=== PATIENT | female | born 1970 | race Caucasian/White ===

== ENCOUNTER 2020-12-01 13:15 | Emergency (ER) | payer OTHER, SELFPAY ==
--- NOTE | ~2020-12-01 | XR_ITS ---
XR chest 1V portable DATE: 12/01/2020 15:49 INDICATION: Cough, productive green mucus. Shortness of breath TECHNIQUE: Portable upright AP chest on 12/01/2020 at 1542 hours COMPARISON: 12/07/2019 PA chest FINDINGS: There is middle lobe infiltrate and/or atelectasis. Marco B-lines are noted, best demonstrated in the left mid to lower lung. Normal heart size. No pleural effusion or pulmonary vascular congestion or pneumothorax. Status post cholecystectomy IMPRESSION: Middle lobe infiltrate and/atelectasis Marco B-lines suggest mild interstitial pneumonitis or interstitial edema of the lungs Reviewed, dictated and finalized at location B. OR ACCOUNT MANAGER IMPRESSION: Middle lobe infiltrate and/atelectasis Marco B-lines suggest mild interstitial pneumonitis or interstitial edema of t he lungs
--- NOTE | ~2020-12-01 | CT_ITS ---
EXAMINATION: CT chest wo con EXAM DATE: 12/01/2020 16:55 INDICATION: Ongoing cough, leukocytosis, chest infiltrates. TECHNIQUE: Spiral CT of the chest without contrast. Axial, coronal and sagittal images were reviewe d. Coronal maximum intensity pixel images of chest reviewed. The dose-length product (DLP) for this examination was 138.05 mGy-cm. The exposure was tailored according to patient size (auto mA exposur e control), and iterative reconstruction (ASIR) was used as additional dose reduction technique. Comp arison is made to prior examination from 12/01/2020. FINDINGS: Scattered regions of subsegmental atelectasis, largest in the right middle lobe and left l ower lobe. Scattered punctate regions of tree-in-bud opacities in the lower lung zones generally jackson cating endobronchial spread of infection, could be chronic. Differential diagnosis includes TB/MARGARITA a nd hypersensitivity pneumonitis. There are no pleural or pericardial effusions. Tracheobronchial tree is patent. There is no media stinal, hilar or axillary lymphadenopathy. There is no pneumothorax. Heart normal in size. Ther e is mild coronary arterial calcification, arterial sclerosis. Upper abdomen is unremarkable. Ther e is thoracic spondylosis without osteoblastic or osteolytic lesions identified. There are cholecys tectomy clips. IMPRESSION: 1. Scattered regions of tree-in-bud punctate nodules, most likely chronic infectious process or hype rsensitivity pneumonitis. 2. Basilar subsegmental atelectasis. Reviewed, dictated and finalized at location A. ICAL EDUCATION AIDE IMPRESSION: 1. Scattered regions of tree-in-bud punctate nodules, most likely chronic infe ctious process or hypersensitivity pneumonitis. 2. Basilar subsegmental atelectasis.
[2020-12-01 13:29] VITALS: BP 147/98; PULSE 95; RESP 16; TEMP 36.1; O2SAT 95
--- NOTE | 2020-12-01 15:37 | ED.URI ---
HPI - URI/Sore Throat General Chief Complaint: Upper Respiratory Infection Stated Complaint: cough since Nov 07 Time Seen by Provider: 12/01/20 15:02 Source: patient Mode of arrival: ambulatory Limitations: no limitations History of Present Illness HPI Narrative: This is a 50 year old female that presents to the ER for cough present over the last 3 weeks. Reports she has been on antibiotics twice for this without relief. Associated with rhinorrhea and congestion. Denies fever, or shortness of breath. Related Data Allergies Allergy/AdvReac Type Severity Reaction Status Date / Time hydromorphone [From Dilaudid] AdvReac Severe Seizure Verified 12/01/20 13:32 codeine AdvReac Intermediate Headache Verified 12/01/20 13:32 Review of Systems Review of Systems: Narrative: CONSTITUTIONAL: Denies fever ENT: Reports rhinorrhea, congestion RESPIRATORY: Reports cough. Denies dyspnea. All systems reviewed & are unremarkable except as noted in HPI and below PMFSH Past Medical History Medical History (Updated 12/01/20 @ 17:24 by Carmen Adams PA-C) History of coronary artery disease History of gastroesophageal reflux (GERD) Social History Social History (Updated 12/01/20 @ 15:44 by Carmen Adams PA-C) Smoking status: Former smoker Gender identity (if verbalized by the patient): Female Exam Narrative: Exam Narrative: GENERAL: Well-appearing, well-nourished, and in no acute distress. HEAD: Normocephalic, atraumatic. EYES: EOMI. ENT: Nares clear, no rhinorrhea or epistaxis. Mucous membranes moist. Oropharynx without tonsillar hypertrophy exudate or other lesions. Bilateral TMs pearly mccord non-bulging NECK: Supple. No adenopathy or masses. CHEST: Clear to auscultation. No respiratory distress. No wheezes rales or rhonchi HEART: Regular rate and rhythm. No murmur heard. Normal peripheral pulses. EXTREMITIES: Normal range of motion. No edema. SKIN: Warm, dry, no rash. NEURO: No focal deficits. Alert and oriented x3. PSYCH: Normal mood and affect Course Vital Signs Vital signs: Vital Signs Temperature 96.9 F L 12/01/20 13:29 Pulse Rate 95 12/01/20 13:29 Respiratory Rate 16 12/01/20 13:29 Blood Pressure 147/98 H 12/01/20 13:29 Pulse Oximetry 95 12/01/20 13:29 Temperature 96.9 F L 12/01/20 13:29 Pulse Rate 95 12/01/20 13:29 Respiratory Rate 16 12/01/20 13:29 Blood Pressure 147/98 H 12/01/20 13:29 Pulse Oximetry 95 12/01/20 13:29 MDM - URI/Sore Throat MDM Narrative Medical decision making narrative: Patient presents to the emergency department for cough over the last 3 weeks. She is afebrile and nontoxic-appearing. Oxygen saturation is normal on room air. CBC with leukocytosis to 14.1. Metabolic panel without concerning findings. Chest x-ray shows middle lobe infiltrate versus atelectasis. CT scan of the chest was obtained which showed scattered regions of tree-in-bud nodules which most likely represents chronic infectious process or hypersensitivity pneumonitis. SARS-CoV-[address] Grubbs, pulmonology about patient work-up. Patient will be treated with Levaquin for community-acquired pneumonia. Would recommend her to follow-up with her PCP for another CT scan of the chest in 6 weeks. Patient is stable and felt appropriate for the outpatient evaluation. She was given warnings to return to the ER Lab Data Attestation: I reviewed the patient's lab results. Result diagrams: 12/01/20 15:47 12/01/20 15:48 Labs: Lab Results 12/01/20 12/01/20 12/01/20 Range/Units 15:47 15:48 15:49 WBC 14.1 H (4.5-10.0) K/mm3 RBC 5.40 (4.2-5.4) M/mm3 Hgb 13.4 (12.0-15.0) g/dL Hct 42.2 (37.0-47.0) % MCV 78.1 L (80-100) fl MCH 24.8 L (26-34) pg MCHC 31.8 L (32-36) g/dl RDW 18.0 H (11.5-14.5) % Plt Count 404 H (150-375) k/mm3 MPV 10.2 (7.4-10.4) fl Immature Gran % (Auto) 0.4 (0-0.5) % Neut % (Auto)
--- NOTE | 2020-12-01 15:53 | PC.NURSE ---
Pt was unable to complete Flu nasal swab. Informed VERNON Adams of this.
[2020-12-01 15:59] LABS: Basophils Absolute Auto 0.1 K/mm3 (0.0-0.1); Basophils Percent Auto 0.5 % (0.2-1.2); Eosinophils Absolute Auto 0.3 K/mm3 (0-0.3); Eosinophils Percent Auto 2.4 % (0-4.4); Hematocrit 42.2 % (37.0-47.0); Hemoglobin 13.4 g/dL (12.0-15.0); Immature Granulocyte Absolute 0.06 K/mm3 (0.00-0.031); Immature Granulocyte Percent A 0.4 % (0-0.5); Lymphocytes Absolute Auto 4.95 K/mm3 (0.9-3.2); Lymphocytes Percent Auto 35.2 % (18.3-44.2); Mean Corpuscular HGB Conc 31.8 g/dl (32-36); Mean Corpuscular Hemoglobin 24.8 pg (26-34); Mean Corpuscular Volume 78.1 fl (80-100); Mean Platelet Volume 10.2 fl (7.4-10.4); Monocytes Absolute Auto 1.1 K/mm3 (0.1-0.6); Neutrophils Absolute Auto 7.5 K/mm3 (1.3-6.7); Neutrophils Percent Auto 53.5 % (45.5-73.1); Platelet Count Result 404 k/mm3 (150-375); White Blood Count 14.1 K/mm3 (4.5-10.0)
[2020-12-01 16:14] LABS: Anion Gap 8 mmol/L (8-16); Blood Urea Nitrogen 7 mg/dL (7-17); Calcium 9.2 mg/dL (8.4-10.2); Carbon Dioxide 28 mmol/L (22-30); Chloride 103 mmol/L (98-107); Estimated CRCL calculation 82 ml/min; Estimated Glomerular Filt Rate > 60; Glucose 96 mg/dL (65-105); Potassium 3.6 mmol/L (3.4-5.0); Sodium 139 mmol/L (137-145)
[2020-12-01 23:29] LABS: SARS-CoV-2 RNA PCR Negative
== END 2020-12-01 17:48 | disposition home or self-care (01) ==
PROVIDERS: Physician Assistant; Emergency Provider Emergency Medicine
DX: J18.9 Pneumonia, unspecified organism (principal); Z20.822 Contact with and (suspected) exposure to COVID-19; I25.10 Atherosclerotic heart disease of native coronary artery without angina pectoris; K21.9 Gastro-esophageal reflux disease without esophagitis; Z87.891 Personal history of nicotine dependence
CPT/HCPCS: 36415; 71045; 71250; 80048; 85025; 99283; C9803; U0003

== ENCOUNTER 2021-07-19 10:47 | Outpatient (CLI) | payer OTHER, SELFPAY ==
--- NOTE | ~2021-07-19 | CT_ITS ---
EXAMINATION: CT abdomen pelvis wo con DATE: 07/19/2021 11:09 INDICATION: Hematuria, unspecified. TECHNIQUE: Computed tomography (CT) of the abdomen and pelvis was performed without intravenous contr ast. Automated exposure control and iterative reconstruction technique were employed. The dose-length product was 375.54 mGy-cm. COMPARISON: Chest CT 12/01/2020 FINDINGS: The visualized portions of the lung bases demonstrate mild atelectasis. No pleural effusion . The heart size is normal. No pericardial effusion. The liver and spleen are normal. There are harrison es of cholecystectomy. The pancreas, adrenal glands, and kidneys are normal. There is no urolithiasis . There are changes of appendectomy. There are no dilated loops of bowel. There are no pathologically enlarged lymph nodes. There is no free intraperitoneal fluid. There are chronic bilateral L5 pars de fects. There is 3 mm anterolisthesis of L5 on S1. There is mild thoracic and lumbar spondylosis. IMPRESSION: 1. No etiology for hematuria. Reviewed, dictated and finalized at location A.
== END 2021-07-19 10:48 | disposition home or self-care (01) ==
PROVIDERS: PCP Family Medicine; Visit Provider Family Medicine
DX: R31.9 Hematuria, unspecified (principal)
CPT/HCPCS: 74176

== ENCOUNTER 2021-08-17 14:05 | Outpatient (CLI) | payer OTHER, SELFPAY ==
--- NOTE | 2021-08-17 14:07 | ECHO_ITS ---
Patient Info Name: Ludmila Cool Age: 51 years : 1970 Gender: Female Ht: 60 in Wt: 144 lbs BSA: 1.68 m2 HR: 58 bpm BP: 136 / 93 mmHg Technical Quality: Fair Exam Date: 08/17/2021 2:13 PM Exam Location: [facility] Patient Status: Outpatient Admit Date: 08/17/2021 Staff Ordering Physician: Genesis Irby MD Elevator Repair Mechanic: Anais Jones RDCS Attending Provider: Genesis Irby MD Referring Physician: Mahamed LEYVA; Exam Type: CA echo doppler color flow Study Info Indications R01.1 - Cardiac murmur, unspecified Complete two-dimensional, color flow and Doppler transthoracic echocardiogram is performed. Summary 1. Complete two-dimensional, color flow and Doppler transthoracic echocardiogram is performed. 2. Left ventricular chamber dimension is normal. 3. Left ventricular systolic function is normal, estimated at 55-60%. 4. The left ventricular diastolic function is normal. 5. E/e' 9 is minimally elevated. 6. Global longitudinal strain is abnormal at -15.4%. 7. There is trace mitral valve regurgitation. 8. No pulmonary hypertension, estimated pulmonary arterial systolic pressure is 28 mmHg. Left Ventricle E/e' 9 is minimally elevated. Global longitudinal strain is abnormal at -15.4%. Left ventricular chamber dimension is normal. Left ventricular systolic function is normal, estimated at 55-60%. The left ventricular diastolic function is normal. Right Ventricle Right ventricular chamber dimension is normal. Right ventricular systolic function is normal. Left Atria Left atrial chamber dimension is normal. Right Atria Right atrial chamber dimension is normal. Aortic Valve The aortic valve is trileaflet. There is no aortic valve stenosis. There is no aortic valve regurgitation. Pulmonic Valve There is no pulmonic regurgitation. Mitral Valve There is no mitral valve stenosis. There is trace mitral valve regurgitation. Tricuspid Valve There is no tricuspid valve regurgitation. No pulmonary hypertension, estimated pulmonary arterial systolic pressure is 28 mmHg. Pericardium/Pleural There is no pericardial effusion. Inferior Vena Cava Normal inferior vena cava with >50% collapse upon inspiration consistent with normal right atrial pressure, 5 mmHg. Aorta The aortic root size at the sinus of Valsalva is normal. Left Ventricular Outflow Tract Name Value Normal LVOT 2D LVOT Diameter 1.9 cm LVOT Doppler LVOT Peak Gradient 3 mmHg LVOT Mean Gradient 2 mmHg LVOT VTI 19 cm LVOT VTI/AV VTI Ratio 0.7 LVOT Stroke Volume 53 ml LVOT CO 4.0 l/min LVOT CI 2.4 l/min/m2 Pulmonic Valve Name Value Normal RVOT Doppler
== END 2021-08-17 14:06 | disposition home or self-care (01) ==
PROVIDERS: PCP Family Medicine; Visit Provider Family Medicine
DX: R01.1 Cardiac murmur, unspecified (principal)
CPT/HCPCS: 93306

== ENCOUNTER 2021-10-17 15:50 | Outpatient (CLI) | payer OTHER, SELFPAY ==
--- NOTE | ~2021-10-17 | CT_ITS ---
EXAMINATION: CT abdomen pelvis w con DATE: 10/17/2021 16:21 INDICATION: Gross hematuria TECHNIQUE: Computed tomography (CT) of the abdomen and pelvis was performed with 100 cc Omnipaque 350 intravenous contrast. The dose-length product was 400.31 mGy-cm. Automated exposure control and iter ative reconstruction technique were employed. COMPARISON: CT dated 07/19/2021. FINDINGS: There is bibasilar dependent atelectasis. Heart size normal. No significant pleural or kimberli cardial effusion. There are 2 hypodensities of the liver, largest in the right hepatic lobe measuring 1.3 cm, image 37. Status post cholecystectomy. The spleen, pancreas, adrenal glands and kidneys are unremarkable. No hydronephrosis. No significant lymphadenopathy. No significant vascular abnormality. No abnormal pelvic masses or fluid collections. No free air or free fluid. No acute osseous abnormal ity. Nonobstructive bowel gas pattern. Colonic diverticulosis without evidence for diverticulitis. IMPRESSION: 1. Subtle hypodensities of the liver, largest measuring 1.3 cm. Statistically these are most likely b enign, although further evaluation with MRI should be considered. 2: No findings to account for patient's hematuria. Reviewed, dictated and finalized at location A. SURGEON IMPRESSION: 1. Subtle hypodensities of the liver, largest measuring 1.3 cm. Statistically t hese are most likely benign, although further evaluation with MRI should be con sidered. 2: No findings to account for patient's hematuria.
== END 2021-10-17 15:51 | disposition home or self-care (01) ==
LOC: ANHIMG 15:57
PROVIDERS: PCP Family Medicine; Visit Provider Urology
DX: R31.0 Gross hematuria (principal); R93.2 Abnormal findings on diagnostic imaging of liver and biliary tract
CPT/HCPCS: 74177; Q9967

== ENCOUNTER 2021-10-25 13:04 | Outpatient (CLI) | payer OTHER, SELFPAY ==
--- NOTE | 2021-10-25 15:33 | ECG_ITS ---
Measurements Intervals [place] Rate: 62 P: 25 [place]: 153 QRS: 44 QRSD: 86 T: 35 QT: 377 QTc: 385 Interpretive Statements SINUS RHYTHM WITH MARKED SINUS ARRHYTHMIA VENTRICULAR PREMATURE COMPLEX DELAYED PRECORDIAL R/S TRANSITION BASELINE ARTIFACT- I, III, AVL, AVF BORDERLINE ECG Electronically Signed On 10-25-2021 16:05:19 COMPOSITE WORKER by Clinton Luther D.O.
== END 2021-10-25 13:05 | disposition home or self-care (01) ==
PROVIDERS: PCP Family Medicine; Visit Provider Urology
DX: Z01.810 Encounter for preprocedural cardiovascular examination (principal); E78.5 Hyperlipidemia, unspecified; F17.210 Nicotine dependence, cigarettes, uncomplicated
CPT/HCPCS: 93005

== ENCOUNTER 2021-10-29 02:01 | Day surgery (SDC) | payer OTHER, SELFPAY ==
[2021-10-24 15:09] VITALS: BMI 28.7
--- NOTE | 2021-10-24 15:23 | PC.NURSE ---
Report to the Outpatient Waiting Room, entrance under the green pavilion located off [facility], at time 6:00 on date 10/29/21. OR Time: 8:00. - You and your visitor will be asked a series of questions to screen for COVID 19 for your protection. - A mask is required within the hospital. - Only one visitor is allowed at this time. Patient visitors will be guided where to wait when not with patient. Preoperative COVID Testing Requirements: No COVID Test needed if: (proof is required; if not received patient will have Rapid Test prior to entry) - Patient has received COVID Vaccine at least 14 days prior to procedure date or - Patient has positive COVID test result within last 90 days of surgery date. COVID Test needed if above criteria is not met If not COVID vaccinated a COVID test must be conducted within 72 hours of surgery and patient is asked to isolate self from time of testing until procedure. You will go to the [facility] for your COVID testing. The [employer] [facility] is located at the corner of [address] [facility]. You will only be called if COVID results are positive and your surgeon may reschedule your elective surgery date. Patients may have clear liquids (water, carbonated beverages, clear teas, apple juice) until 3 hours prior to surgery with a maximum of 20 ounces. - No food from midnight until time of surgery - Infants may have breast milk until 4 hours before surgery, formula 6 hours prior to surgery. - Children will be allowed to drink immediately following surgery. If applicable, please bring a bottle or sippy cup to assist with drinking. Juice, water, soda, and popsicles are readily available. For infants on formula, please bring formula the day of surgery. Pacifiers are allowed. Take the following medications with a SIP of water the morning of surgery: NONE Medications to discontinue per physician: ASPIRIN AND XARELTO Date to take last dose: PER DR. TADEO Please no make-up, nail honduran, hairspray, perfume, deodorant, or body powder the day of surgery. No jewelry (including any body piercings) or valuables the day of surgery, leave them at home. Please take a shower or bath the night before, or the morning of, surgery with an antibacterial soap. Wear comfortable, loose fitting clothing. Children are encouraged to wear pajamas. - Jewelry must be removed prior to entering the operating room. Rings and piercings that are not removed may be cut off. - The hospital will not accept responsibility for valuables. - Please leave all valuables, including medications, at home the day of surgery. If you are going home after surgery, a licensed starting gate driver must drive you home. - NO public transportation without another adult. - We recommend that an adult stay with you for 24 hours following discharge. - We also recommend that you do not drive, make important decision, drink alcoholic beverages, or take any drugs that were not prescribed by your health care provider for at least 24 hours after your discharge time. For Pediatric surgeries, we recommend two adults accompany the child home (only one inside the building at this time). Follow any additional instructions given to you from your surgeon. Telephone instructions given to EDGARDO RUSH and asked if any additional questions and then verbalized understanding. Patient advised to call surgeon office or pre surgery nurse liaison [phone] if any additional questions.
--- NOTE | 2021-10-26 08:51 | PM.IMHP ---
H&P: HPI History of Present Illness Date/Time: 10/26/21 08:51 This is a 51-year-old woman the bladder tumor noted on cystoscopy Chief Complaint: Bladder tumor Review of Systems Review of Systems: All systems reviewed & are unremarkable except as noted in HPI and below PMFSH Past Medical History Medical History Endometriosis History of coronary artery disease History of gastroesophageal reflux (GERD) PAD (peripheral artery disease) PVD (peripheral vascular disease) Surgical History Surgical History History of femoropopliteal bypass S/P cholecystectomy S/P YANI (total abdominal hysterectomy) Family History Family History Father , age 70 Colon cancer at age 7 Mother Congestive heart failure Sibling Lung cancer Social History Social History Social History: Single Smoking packs per day: 1.5 Smoking cigarettes per day: 30.0 Years smoked: 33 Smoking pack-years: 49.50 Smoking status: Former smoker Tobacco type: cigarettes Second hand tobacco smoke exposure: No Smoking end date: 11/24/18 Alcohol intake: current Alcohol use details: 2-4/YEAR Substance use: never Substance use type: does not use Gender identity (if verbalized by the patient): Female Sexual Orientation (if Verbalized by the Patient): Straight or Heterosexual Spiritual care concerns: No Meds Home Medications and Allergies Home Medications Medication Instructions Recorded Confirmed Type aspirin 81 mg tablet,delayed 81 mg PO DAILY 12/15/20 10/24/21 History release atorvastatin 40 mg tablet 40 mg PO DAILY 12/15/20 10/24/21 History omeprazole 20 mg capsule,delayed 20 mg PO DAILY 12/15/20 10/24/21 History release rivaroxaban 2.5 mg tablet 2.5 mg PO BID 07/19/21 10/24/21 History Allergies Allergy/AdvReac Type Severity Reaction Status Date / Time hydromorphone [From Dilaudid] AdvReac Severe Seizure Verified 10/24/21 15:07 codeine AdvReac Intermediate Headache Verified 10/24/21 15:07 Exam Narrative: No acute distress Normal breathing Alert and orient x3 Assessment and Plan Assessment and plan (1) Neoplasm, bladder: Code(s): D49.4 - Neoplasm of unspecified behavior of bladder Status: Acute Assessment and Plan: Transurethral resection of bladder tumor
[2021-10-29] VITALS (8 sets, daily range): BP systolic 115–151; BP diastolic 59–86; PULSE 62–82; RESP 12–18; TEMP 36.7–36.8; O2SAT 92–100
[2021-10-29] MEDS: LACTATED RINGERS 1,000 ML 30 ML IV CONT (07:00)
--- NOTE | 2021-10-29 07:11 | WPDANESEPPF ---
Anes - Initial Pre Proc Eval Procedure: Operation Date: 10/29/21 08:15 Proposed Procedures p Trans Urethral Resection Bladder Tumor - Bryant Bravo MD Date/Time: 10/29/21 07:11 Surgeon: Bryant Bravo MD Pre Op Diagnosis: bladder neoplasm of uncertain malignant potential Patient Data Age: 51 Gender: F Height: 1.52 m Weight: 66.68 kg Allergies Allergy/AdvReac Type Severity Reaction Status Date / Time hydromorphone [From Dilaudid] AdvReac Severe Seizure Verified 10/24/21 15:07 codeine AdvReac Intermediate Headache Verified 10/24/21 15:07 Home Medications Medication Instructions Recorded Confirmed Type aspirin 81 mg tablet,delayed 81 mg PO DAILY 12/15/20 10/24/21 History release atorvastatin 40 mg tablet 40 mg PO DAILY 12/15/20 10/24/21 History omeprazole 20 mg capsule,delayed 20 mg PO DAILY 12/15/20 10/24/21 History release rivaroxaban 2.5 mg tablet 2.5 mg PO BID 07/19/21 10/24/21 History Laboratory Tests 10/29/21 06:54 Urine Color Pending Urine Appearance Pending Urine pH Pending Ur Specific [place] Pending Urine Protein Pending Urine Glucose (UA) Pending Urine Ketones Pending Ur Blood (Man) Pending Urine Nitrate Pending Urine Bilirubin Pending Urine Urobilinogen Pending Leukocyte Esterase Rfl Pending Patient hx anesthesia problems: none Family hx anesthesia problems: none Results Review: All pre-operative results and documents have been reviewed as part of the pre-operative evaluation. [facility] Past Medical History Medical History DVT (deep venous thrombosis) Endometriosis History of coronary artery disease History of gastroesophageal reflux (GERD) Hyperlipidemia PAD (peripheral artery disease) PVD (peripheral vascular disease) Surgical History Surgical History History of femoropopliteal bypass S/P cholecystectomy S/P YANI (total abdominal hysterectomy) Family History Family History Father , age 70 Colon cancer at age 7 Mother Congestive heart failure Sibling Lung cancer Social History Social History Social History: Single Smoking packs per day: 1.5 Smoking cigarettes per day: 30.0 Years smoked: 33 Smoking pack-years: 49.50 Smoking status: Former smoker Tobacco type: cigarettes Second hand tobacco smoke exposure: No Smoking end date: 11/24/18 Alcohol intake: current Alcohol use details: 2-4/YEAR Substance use: never Substance use type: does not use Living arrangements: alone Gender identity (if verbalized by the patient): Female Sexual Orientation (if Verbalized by the Patient): Straight or Heterosexual Spiritual care concerns: No Anes - Eval Final PreProcedure Day of Procedure 10/29/21 07:11 Patient weight: overweight Heart: regular rate and rhythm Lungs: clear to auscultation Airway: Mallampati scale class II Neurological: alert and oriented Last oral intake: >/= 8 hours ASA classification: III Emergent: no Anesthetic plan: proceed Anesthesia type and monitoring: general ETT and standard monitoring Results Review: All pre-operative results and documents have been reviewed as part of the pre-operative evaluation. Informed Consent: The patient's anesthetic plan and its attendant risks and benefits were discussed with the patient/family/POA. Questions were solicited and answers provided to the satisfaction of the patient/family/POA.
[2021-10-29 07:20] LABS: Add Urine Microscopic? YES; Appearance Urine Cloudy (Clear); Bilirubin Urine Negative (Negative); Blood Urine 1+ (Negative); Budding Yeast Urine Present /hpf; Color Urine Yellow (Yellow); Glucose Urine UA Negative (Negative); Ketones Urine Negative (Negative); Leukocyte Esterase Ur Negative LEU/UL (Negative); Mucus Urine Rare /lpf; Nitrate Urine Negative (Negative); Protein Urine Negative (Negative); Specific Grav Ur 1.015 (1.001-1.035); Squamous Epithelial Cell Urine Many /hpf (Few); Urobilinogen Urine Negative mg/dL (<2.0)
--- NOTE | 2021-10-29 07:21 | WPDHPUPDATE1 ---
History and Physical Update Update Date/Time: 10/29/21 07:21 History and Physical has been reviewed, including an updated exam of the patient. There are NO changes in the patient's condition. Risks, benefits, and alternatives have been discussed and questions answered. Patient agrees to proceed with procedure.
[2021-10-29] MEDS: ceFAZolin 2 GM/D5W 50 ML 2 GM/50 ML BAG IVPB (08:19)
[2021-10-29] MEDS: LIDOCAINE HCL 2% GEL UROJET 10 ML PKG MUCOUS MEM (08:41)
--- NOTE | 2021-10-29 09:12 | SUR.PHASEI ---
Simple mask removed at 0912.
--- NOTE | 2021-10-29 10:32 | P.OP_ITS ---
Procedure Note - Detailed Date of Procedure 10/29/21 Pre-op Diagnosis bladder neoplasm of uncertain malignant potential Post-op Diagnosis same Procedure Performed Transurethral resection of a bladder tumor. 2 cm total in aggregate Surgeon Bryant Bravo MD Anesthesia general Indications This is a woman with a bladder tumor noted on cystoscopy. She is here today for resection. She understands risks of bleeding, infection, inability remove the tumor, damage to the ureter bladder. She agrees to proceed Findings 2 cm tumor on left side of bladder. Two small satellite lesions on the right side of the bladder. The largest tumor was on a very small stalk Description of Procedure She was correctly identified. Informed consent obtained. She from the operating room. She was given general anesthesia. She was placed in the dorsal lithotomy position. She was prepped and draped in a sterile fashion. A time- out was performed. I entered the bladder via cystoscopy. She had a 2 cm tumor on the left side of the bladder near the ureteral orifice. She had 2 small satellite tumors on the right side of the bladder. The rest of bladder was normal. I used the biopsy forceps to remove the small satellite tumors. I then resected the larger tumor. All resection was then removed from the ureteral orifice. All biopsy and resection sites were generously fulgurated. I examined both ureters and they were both seen to excrete clear yellow urine at the end of all resection and fulguration. Specimen was removed. The bladder was drained. There was no bleeding the low insufflation pressures. She was awakened transferred back in stable condition. Implants None Estimated Blood Loss 1 Drains No Packing No Pathology yes (Bladder tumor aggregation sent to pathology) Complications No immediate complications Condition stable Disposition PACU
== END 2021-10-29 10:50 | disposition home or self-care (01) ==
PROVIDERS: PCP Family Medicine; Visit Provider Urology
PROC: 0TBB8ZZ Excision of Bladder, Via Natural or Artificial Opening Endoscopic (ICD-10-PCS; CPT 52234; principal; 2021-10-29 08:15)
DX: C67.9 Malignant neoplasm of bladder, unspecified (principal); E78.5 Hyperlipidemia, unspecified; I73.9 Peripheral vascular disease, unspecified; K21.9 Gastro-esophageal reflux disease without esophagitis; I25.10 Atherosclerotic heart disease of native coronary artery without angina pectoris; Z86.718 Personal history of other venous thrombosis and embolism; Z87.891 Personal history of nicotine dependence
CPT/HCPCS: 52234; 81001; 87086; 88305; A9270; J0690; J1100; J2250; J2405; J2704; J3010; J7120

== ENCOUNTER 2021-11-05 15:57 | Outpatient (CLI) | payer OTHER, SELFPAY ==
--- NOTE | ~2021-11-05 | MR_ITS ---
EXAMINATION: MR abdomen wo/w con DATE: 11/05/2021 17:08 INDICATION: Liver cyst. TECHNIQUE: Magnetic resonance imaging (MRI) of the abdomen was performed without and with 13 mL Multi Zhang intravenous contrast. Sequences included coronal T2-weighted FS FSE, coronal and axial FS FIEST A, axial T2-weighted FSE, coronal LAVA-flex, axial STIR FSE, axial DWI, axial dual-echo T1-weighted F SPGR, and axial LAVA. Postcontrast sequences included coronal LAVA-flex and a time course of axial LA VA. COMPARISON: CT abdomen and pelvis 10/17/2021, 12/01/2020 FINDINGS: There is diffuse hepatic steatosis. There are 12 mm and 5 mm hyperenhancing masses in the liver that are not visible on the noncontrast CT from 12/01/2020. No washout. The gallbladder is absent. The splee n, pancreas, and adrenal glands are normal. There are cysts in the kidneys measuring up to 6 mm on th e left. There are no dilated loops of bowel. There are no pathologically enlarged lymph nodes. There is no free intraperitoneal fluid. IMPRESSION: 1. Two hyperenhancing liver masses with the larger measuring 12 mm. In the absence of known malignanc y or chronic liver disease, these findings are likely hemangiomas or focal nodular hyperplasia. 2. Diffuse hepatic steatosis. Reviewed, dictated and finalized at location A. [employer]ES IMPRESSION: 1. Two hyperenhancing liver masses with the larger measuring 12 mm. In the abse nce of known malignancy or chronic liver disease, these findings are likely hem angiomas or focal nodular hyperplasia. 2. Diffuse hepatic steatosis.
[2021-11-05 16:35] LABS: Estimated Glomerular Filt Rate > 60
== END 2021-11-05 15:58 | disposition home or self-care (01) ==
LOC: ANHIMG 16:02
PROVIDERS: PCP Family Medicine; Visit Provider Urology
DX: K76.89 Other specified diseases of liver (principal); K76.0 Fatty (change of) liver, not elsewhere classified
CPT/HCPCS: 74183; A9577

== ENCOUNTER 2022-03-25 16:39 | Outpatient (CLI) | payer OTHER, SELFPAY ==
--- NOTE | ~2022-03-25 | XR_ITS ---
EXAM: XR lumbar spine min 4V HISTORY: R20.0 - Anesthesia of skin COMPARISON: None available FINDINGS: 5 nonrib-bearing lumbar-type vertebral bodies. Pedicles intact. Normal vertebral body alig nment. Vertebral body heights preserved. Disc spaces maintained. Normal facets and posterior elements . IMPRESSION: Normal lumbar spine radiograph findings. Reviewed, dictated and finalized at location K.
== END 2022-03-25 16:40 | disposition home or self-care (01) ==
PROVIDERS: PCP Family Medicine; Visit Provider Nurse Practitioner Gerontology
DX: R20.0 Anesthesia of skin (principal)
CPT/HCPCS: 72110

== ENCOUNTER 2022-03-29 07:25 | Outpatient (CLI) | payer OTHER, SELFPAY ==
--- NOTE | ~2022-03-29 | CT_ITS ---
EXAMINATION: CT lumbar spine wo con DATE: 03/29/2022 07:44 INDICATION: Low back pain radiating down the right leg. TECHNIQUE: Computed tomography (CT) of the lumbar spine was performed without intravenous contrast. A utomated exposure control and iterative reconstruction technique were employed. The dose-length produ ct was 362.23 mGy-cm. COMPARISON: Lumbar spine radiographs 03/25/2022 FINDINGS: There is 3 mm anterolisthesis of L5 on S1. There is a Schmorl's node of superior endplate o f L1. Intervertebral disc heights are normal. There are chronic bilateral L5 pars defects. The follow ing disc levels are specifically discussed: L1-L2: The disc does not extend beyond the endplate margin. There is mild right and moderate left fac et joint osteoarthritis. There is no neural foraminal stenosis. There is no central canal stenosis. L2-L3: The disc is mildly bulging. There is mild bilateral facet joint osteoarthritis. There is mild bilateral neural foraminal stenosis. There is no central canal stenosis. L3-L4: The disc is bulging. There is severe right and mild left facet joint osteoarthritis. There is mild bilateral neural foraminal stenosis. There is mild central canal stenosis. L4-L5: The disc is bulging. There is mild bilateral facet joint osteoarthritis. There is mild bilater al neural foraminal stenosis. There is mild central canal stenosis. L5-S1: The disc is bulging. There is mild bilateral facet joint osteoarthritis. There is mild bilater al neural foraminal stenosis. There is mild central canal stenosis. IMPRESSION: 1. Chronic bilateral L5 pars defects with grade 1 anterolisthesis of L5 on S1. 2. Mild lumbar spondylosis. Reviewed, dictated and finalized at location A.
== END 2022-03-29 07:26 | disposition home or self-care (01) ==
PROVIDERS: PCP Family Medicine; Visit Provider Nurse Practitioner Gerontology
DX: R20.2 Paresthesia of skin (principal); M43.17 Spondylolisthesis, lumbosacral region; M47.816 Spondylosis without myelopathy or radiculopathy, lumbar region; M53.86 Other specified dorsopathies, lumbar region
CPT/HCPCS: 72131

== ENCOUNTER 2022-06-03 14:00 | Outpatient (RCR) | payer OTHER, SELFPAY ==
--- NOTE | 2022-04-18 10:45 | PTOPEVAL ---
PHYSICAL THERAPY EVALUATION AND PLAN OF CARE 04-18-22 Thank you for referring Ludmila Cool to [facility] for the diagnosis of lumbar radiculopathy. She is scheduled to be seen for therapy? 2 x/week for 5 weeks. Please review, sign, date and return this plan of care GABY. I agree with and certify that the following plan of care is medically necessary. Referring Physician Date Attending Provider: RENE Hill Past Medical History Source of Past Medical History Recalled from Previous Visit, Confirmed with Patient/Family Neurological History Hx Migraine Yes Cardiovascular History Hx Cardiac Catheterization Yes: negative ~ 2019 Hx Deep Vein Thrombosis Yes: Chronic DVTs with surgical removal B LE's- last one Nov 2019 Hx Heart Murmur Yes Hx Hypercholesterolemia Yes: meds Hx Vascular Surgery Yes: Left leg stent 2016 Respiratory History Hx COVID-19 Yes: 10/06/21 - LOSS OF TASTE/ SMELL Gastrointestinal History Hx Appendectomy Yes Hx Cholecystectomy Yes Hx Gastroesophageal Reflux Disease Yes Genitourinary History Hx Other Genitourinary Disorders Yes: HEMATURIA Musculoskeletal History Hx Amputation Yes: 2ND TOE LT FOOT Hx Back Pain Yes: chronic > 10 yr Hx Fractures Yes: RT WRIST Hx Orthopedic Surgery Yes: RT WRIST Hematological History Hx Hematological Disorders No Significant History Endocrine History Hx Endocrine Disorders No Significant History HEENT History Hx HEENT Disorders No Significant History Integumentary History Hx Skin Disorders No Significant History Reproductive History Hx Section Yes: X1 Hx Other Reproductive Disorders Yes: ADHESIOLYSIS Psychosocial History Hx Anxiety Yes: SITUATIONAL Pain History History of Any Previous or Ongoing No Significant History Instance of Pain Anesthesia History Hx Anesthesia Reactions No Significant History Other History Hx Cancer Yes: bladder cancer removed surgically; cervical cancer at 16 yr old Evaluation Information Diagnosis lumbar radiculopathy Onset March 30, 2022 Subjective Information squatting down to pull a weed, Query Text:As Reported By Patient/ had immediate onset of sharp, Family stabbing with hot senior integration developer back and R leg started going numb; history of chronic low back pain, but never had radicular pain before; we
--- NOTE | 2022-05-31 11:12 | PCPTNOTE ---
pt canceled today's reeval due to being ill;
--- NOTE | 2022-06-03 14:44 | PTOPEVAL ---
PHYSICAL THERAPY DISCHARGE REPORT 06-03-22 Refer to the clinical summary below, for her status today, compared to the initial evaluation. All of the goals were achieved, except the pain rating at the worst rating. She will be discharged from PT at this time. Thank you for referring Ludmila Cool to [facility] Please review, sign, date and return this Discharge Report GABY. I agree with and certify that the following plan of care is medically necessary. 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; Additional Pain Score Comments 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, do not 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 that often; 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, will be more lifting and activity; discussed work position at office- desk set up, phone use --does not use head set or speaker phone, cradles the phone with her neck and reaches across desk to phone-- going to call IT to move her phone to the R side of her desk; can walk as much as need to without pain; Oswestry self assessment functional score of 0% limitation in activity level; Discussed home TENS unit & pad placement Interventions Used Interventions Used By Clinicians Education,Exercise Pain Relief Interventions Used By Exercise,Heat,Inactivity/Rest, Patient Position Change Other Alleviating Interventions stretching helps, lie flat and relax Lumbar ROM Comments standing trunk ROM: flexion fingers to ankles- no pain; extension WNL no pain; side bend to L & R- fingers to knee - no pain; rotation R & L no
== END 2022-06-04 10:09 | disposition home or self-care (01) ==
LOC: ANHPT 14:00
PROVIDERS: PCP Family Medicine; Referring Provider Nurse Practitioner Family; Visit Provider Nurse Practitioner Family
DX: M54.16 Radiculopathy, lumbar region (principal)
CPT/HCPCS: 97014; 97110; 97140; 97161; 97530; G0283

== ENCOUNTER 2022-06-24 16:52 | Outpatient (CLI) | payer OTHER, SELFPAY ==
--- NOTE | ~2022-06-24 | US_ITS ---
EXAMINATION: US art doppler w press LE BI DATE: 06/24/2022 18:09 INDICATION: Vascular disease. Claudication. TECHNIQUE: Segmental pressures and plethysmographic and Doppler waveforms of the brachial and lower e xtremity arteries were obtained. COMPARISON: None. FINDINGS: Right and left brachial artery pressures of 147 mm Hg and 145 mm Hg, respectively, are concordant (no rmal difference <= 30 mmHg). The right thigh pressure index is 1.12 (normal > 1.2). Pressures in the left thigh and the hurhj-emv-mtga and tjhpu-zfm-ggor popliteal arteries were not obtained due to vasc ular stenting in the left thigh. The right ankle-brachial index (CAITLIN) is 1.21 (normal >= 0.9-1). The right great toe-brachial index (T BI) is 0.94 (normal >= 0.6-0.8). The right lower extremity segmental pressure gradients are increased between the right ozzrh-nhx-rijk popliteal artery and the right dorsalis pedis artery (normal gradie nts <= 20-30 mmHg between adjacent levels on the same leg or the same levels on the two legs). Arteri al waveforms are triphasic at the right common femoral artery and biphasic at the more distal arterie s with brisk systolic upstrokes throughout. The left CAITLIN is 0.62. The left TBI is 0.37. The left lower extremity segmental pressure gradients are increased between the left dorsalis pedis and posterior tibial arteries and the corresponding arteri es at the contralateral right ankle. Arterial waveforms are biphasic with brisk systolic upstrokes th roughout the arteries of the left lower limb. IMPRESSION: 1. Mild arterial occlusive disease to the right lower limb with mildly decreased high right thigh pre ssure index but normal right CAITLIN and TBI. 2. Prominent arterial occlusive disease to the left lower limb with moderately decreased left CAITLIN and TBI. Reviewed, dictated and finalized at location A. IMPRESSION: 1. 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 2. Prominent arterial occlusive disease to the left lower limb with moderately decreased left CAITLIN and TBI.
--- NOTE | ~2022-06-24 | US_ITS ---
EXAMINATION: US venous doppler [facility] DATE: 06/24/2022 18:14 INDICATION: Left lower limb pain TECHNIQUE: Grayscale ultrasound images without and with compression and Doppler ultrasound images of the left lower extremity veins were obtained. COMPARISON: None. FINDINGS: The visualized portions of left common femoral vein, profunda (deep) femoral vein, femoral vein, popl iteal vein, peroneal veins, posterior tibial veins, gastrocnemius vein and greater saphenous vein out flow are patent. IMPRESSION: 1. No deep venous thrombosis in the left lower limb. Reviewed, dictated and finalized at location A.
== END 2022-06-24 16:53 | disposition home or self-care (01) ==
PROVIDERS: PCP Family Medicine; Visit Provider Nurse Practitioner Gerontology
DX: Z86.718 Personal history of other venous thrombosis and embolism (principal); I73.9 Peripheral vascular disease, unspecified
CPT/HCPCS: 93923; 93971

== ENCOUNTER 2022-10-09 10:12 | Outpatient (CLI) | payer OTHER, SELFPAY ==
--- NOTE | 2022-10-09 | EST_ITS ---
Patient Info Name: Ludmila Cool Age: 52 years : 1970 Gender: Female Ht: 60 in Wt: 147 lbs BSA: 1.70 m2 Exam Date: 10/09/2022 11:49 AM Exam Location: [facility] Stress Patient Status: Outpatient Admit Date: 10/09/2022 Staff Ordering Physician: Jai, Taqueria Avina MD Attending Provider: Jai, Taqueria Avina MD Exercise Technologist: Luis Berg RDCS, RT Exercise Physician: Romie Briggs MD Exam Type: CA stress ralph w NM Study Info A regadenoson stress test was performed. Summary 1. Nondiagnostic ST/T wave changes with Lexiscan administration. 2. Frequent PVCs at rest and during stress. 3. No chest discomfort with stress test. 4. Please correlate with nuclear medicine images, reported separately. Protocol: Lexiscan Stress ECG Details Stage: REST Duration (min): 2 min : 11 sec HR (bpm): 71 SBP (mmHg): 132 DBP (mmHg): 77 Stage: REST Duration (min): 2 min : 46 sec HR (bpm): 77 SBP (mmHg): 132 DBP (mmHg): 77 Stage: REST Duration (min): 25 min : 34 sec HR (bpm): 71 SBP (mmHg): 132 DBP (mmHg): 77 Stage: STAGE 1 Duration (min): 0 min : 59 sec HR (bpm): 107 SBP (mmHg): 137 DBP (mmHg): 76 Stage: RECOVERY Duration (min): 1 min : 0 sec HR (bpm): 110 SBP (mmHg): 137 DBP (mmHg): 76 Stage: RECOVERY Duration (min): 2 min : 0 sec HR (bpm): 109 SBP (mmHg): 137 DBP (mmHg): 76 Stage: RECOVERY Duration (min): 3 min : 0 sec HR (bpm): 107 SBP (mmHg): 133 DBP (mmHg): 72 Stage: RECOVERY Duration (min): 3 min : 8 sec HR (bpm): 105 SBP (mmHg): 133 DBP (mmHg): 72 Rest HR: 71 bpm Peak HR: 111 bpm Rest Sys BP: 132 mmHg Peak Sys BP: 137 mmHg Max Pred HR: 169 bpm % Max Pred HR: 66 % Target HR: 144 bpm Max RPP: 15,207 bpm*mmHg BP Response: Normal blood pressure response Termination Reason: Completed protocol Cardiac Symptoms: None Total Time: 1 min : 0 sec Rest Mackenzie BP: 77 mmHg Peak Mackenzie BP: 76 mmHg Total Dose: 0.4 mg Resting ECG Sinus rhythm with frequent PVCs in form of ventricular bigeminy. Stress ECG Nondiagnostic ST/T wave changes with Lexiscan administration. Arrhythmias Frequent PVCs at rest and during stress. Report Signatures
--- NOTE | ~2022-10-09 | NM_ITS ---
EXAMINATION: NM ralph stress w perfusion DATE: 10/09/2022 13:18 INDICATION: Preoperative testing. Coronary artery disease and hyperlipidemia. TECHNIQUE: Rest images were obtained following intravenous administration of 9.5 mCi Tc99m tetrofosmi n (Myoview). The patient was infused intravenously with Lexiscan (Regadenoson). Then, 26.3 mCi Tc99m tetrofosmin (Myoview) was administered intravenously, and stress images were obtained. Data was recon structed into short axis and horizontal and vertical long axis SPECT images. Gated SPECT images were also obtained. COMPARISON: None. FINDINGS: There is no definite reversible or fixed perfusion abnormality to suggest ischemia or infar ction. There is normal left ventricular chamber size, wall motion and ejection fraction. Left ventr icular ejection fraction measures >70%. IMPRESSION: 1. Normal myocardial perfusion at rest and during stress. 2. Left ventricular ejection fraction measuring >70%. Reviewed, dictated and finalized at location B. ITY ASSURANCE TESTER
== END 2022-10-09 10:13 | disposition home or self-care (01) ==
PROVIDERS: PCP Family Medicine; Visit Provider Internal Medicine Cardiovascular Disease
DX: Z01.818 Encounter for other preprocedural examination (principal); I25.10 Atherosclerotic heart disease of native coronary artery without angina pectoris; E78.5 Hyperlipidemia, unspecified
CPT/HCPCS: 78452; 93017; A9502; J2785

== ENCOUNTER 2023-05-14 07:28 | Outpatient (CLI) | payer OTHER, MEDICAID, SELFPAY ==
[2023-05-14 16:54] LABS: Basophils Absolute Auto 0.1 K/mm3 (0.0-0.1); Basophils Percent Auto 0.7 % (0.2-1.2); Eosinophils Absolute Auto 0.3 K/mm3 (0-0.3); Eosinophils Percent Auto 1.9 % (0-4.4); Hematocrit 37.4 % (37.0-47.0); Hemoglobin 10.3 g/dL (12.0-15.0); Immature Granulocyte Absolute 0.05 K/mm3 (0.00-0.031); Immature Granulocyte Percent A 0.4 % (0-0.5); Lymphocytes Absolute Auto 3.33 K/mm3 (0.9-3.2); Lymphocytes Percent Auto 24.6 % (18.3-44.2); Mean Corpuscular HGB Conc 27.5 g/dl (32-36); Mean Corpuscular Volume 68.9 fl (80-100); Mean Platelet Volume 10.5 fl (7.4-10.4); Monocytes Absolute Auto 1.3 K/mm3 (0.1-0.6); Monocytes Percent Auto 9.3 % (2.6-8.5); Neutrophils Absolute Auto 8.5 K/mm3 (1.3-6.7); Neutrophils Percent Auto 63.1 % (45.5-73.1); Platelet Count Result 522 k/mm3 (150-375); Red Blood Count 5.43 M/mm3 (4.2-5.4); Red Cell Distribution Width 21.2 % (11.5-14.5); White Blood Count 13.5 K/mm3 (4.5-10.0)
[2023-05-14 17:59] LABS: Platelet Estimate Increased (Adequate); Schistocytes None Seen (NORMAL)
[2023-05-14 18:00] LABS: Anisocytosis 3+ (NORMAL); Hypochromasia 1+ (NORMAL)
[2023-05-14 20:22] LABS: Alanine Aminotransferase 17 U/L (6-35); Alkaline Phosphatase 121 U/L (38-126); Anion Gap 4 mmol/L (8-16); Aspartate Amino Transferase 34 U/L (14-36); Bilirubin,Total 0.5 mg/dL (0.2-1.3); Blood Urea Nitrogen 6 mg/dL (7-17); Calcium 8.6 mg/dL (8.4-10.2); Carbon Dioxide 31 mmol/L (22-30); Chloride 107 mmol/L (98-107); Cholesterol 141 mg/dL (0-200); Estimated Glomerular Filt Rate > 60; Glucose 88 mg/dL (65-110); HDL Direct 40 mg/dL; Potassium 4.3 mmol/L (3.4-5.0); Sodium 142 mmol/L (137-145); Triglycerides 121 mg/dL (<150)
[2023-05-14 20:34] LABS: LDL Cholesterol Direct 78 mg/dL
== END 2023-05-14 07:29 | disposition home or self-care (01) ==
PROVIDERS: PCP Family Medicine; Visit Provider Family Medicine
DX: E78.2 Mixed hyperlipidemia (principal); I73.9 Peripheral vascular disease, unspecified; R20.2 Paresthesia of skin; F41.1 Generalized anxiety disorder; E03.9 Hypothyroidism, unspecified; I10 Essential (primary) hypertension
CPT/HCPCS: 36415; 80053; 80061; 84443; 85025